=== PATIENT | male | born 1980 | race Caucasian/White ===

== ENCOUNTER 2017-03-16 20:45 | Outpatient (CLI) ==
[2014-04-06 14:57] VITALS: BMI 19.6
== END 2017-03-16 20:46 | disposition home or self-care (01) ==
LOC: AMBL 20:45
PROVIDERS: ATTEND Internal Medicine Geriatric Medicine
DX: R56.9 Unspecified convulsions (principal)

== ENCOUNTER 2017-09-29 14:23 | Outpatient (CLI) | payer OTHER ==
[2017-09-29 15:37] VITALS: BMI 19.1
== END 2017-09-29 14:24 | disposition left against medical advice (07) ==
LOC: AMBL 14:23
PROVIDERS: ATTEND Family Medicine
DX: R55 Syncope and collapse (principal); W19.XXXA Unspecified fall, initial encounter

== ENCOUNTER 2017-09-29 15:29 | Emergency (ER) ==
[2017-09-29 15:37] VITALS: BP 162/101; TEMP 98.6; BMI 19.1
--- NOTE | 2017-09-29 15:53 | ED.PDOC ---
Medical Screening Exam - General Information Time Seen by Physician*: 15:20 Mode of Arrival: Stretcher Information Source: Patient, EMT - History Chief Complaint: Seizure Stated Complaint: possible seizure, missed a couple of my seizure meds Symptoms Are: Resolved Severity: None - Review Of Systems Constitutional: None CV: Reports: None Respiratory: Reports: None GI: Reports: None : Reports: None Musculoskeletal: Reports: None Neuro: Reports: None - Examination Findings Visit Related to : No - Medical Decision Making Emergency Medical Condition: No Physical Exam - Physical Exam Appearance: Well-appearing Ill-appearing: None Pain Distress: None Eyes: CHAD, EOMI, Conjunctiva clear ENT: Ears normal, Nose normal, Oropharynx normal Respiratory: Airway patent, Breath sounds clear, Breath sounds equal, Respirations nonlabored Cardiovascular: RRR, Pulses normal, No rub, No murmur GI/: Soft, Nontender, No masses, Bowel sounds normal, No Organomegaly Musculoskeletal: Normal strength, ROM intact, No edema, No calf tenderness Skin: Warm, Dry, Normal color Neurological: Sensation intact, Motor intact, Reflexes intact, Cranial nerves intact, Alert, Oriented Psychiatric: Affect appropriate, Mood appropriate Interpretation - Gang Miner Rate: Normal Rhythm: Sinus Ectopy: None Re-Evaluation - Re-Evaluation Time of Re-Evaluation: 04:00 Status: Improved Vital Signs Stable: Yes Appearance: NAD Lungs: Clear Skin: Warm and Dry Neuro: Alert and Oriented X3 CV: RRR Critical Care Note - Critical Care Note Total Time (mins): 0 Course - Course Vital Signs: Temp Pulse Resp BP Pulse Ox 09/29/17 15:30 98.6 F 99 H 20 162/101 H 97 Departure - Departure Time of Disposition: 16:05 (AMA) Disposition: HOME SELF-CARE Discharge Problem: Seizure Condition: Good Pt referred to PMD for follow-up: Yes IPMP verified?: No Allergies/Adverse Reactions: Allergies aspirin Adverse Reaction (Verified 09/29/17 15:37) codeine Adverse Reaction (Verified 09/29/17 15:37) Home Medications: Ambulatory Orders Divalproex Sodium [Depakote] 500 mg PO QID 04/06/14 Ipratropium/Albuterol Sulfate [Combivent Respimat Inhal [place]] 4 gm IH DIRECTED 04/06/14 Phenytoin Cap [Dilantin] 200 mg PO BID 04/06/14 Disposition Discussed With: Patient (take seizure meds as directed)
== END 2017-09-29 16:00 | disposition left against medical advice (07) ==
LOC: ED 15:29
DX: R56.9 Unspecified convulsions (principal)
CPT/HCPCS: 82962; 99284

== ENCOUNTER 2017-09-29 16:45 | Outpatient (CLI) | payer OTHER ==
[2017-09-29 15:37] VITALS: BMI 19.1
== END 2017-09-29 16:46 | disposition short-term general hospital (02) ==
LOC: AMBL 16:45
PROVIDERS: ATTEND Family Medicine
DX: R56.9 Unspecified convulsions (principal); R41.82 Altered mental status, unspecified; S09.90XA Unspecified injury of head, initial encounter; W19.XXXA Unspecified fall, initial encounter

== ENCOUNTER 2018-10-05 17:06 | Emergency (ER) ==
[2018-10-05 17:14] VITALS: BP 82/56; TEMP 98.6
[2018-10-05] MEDS ORDERED: SODIUM CHLORIDE 1,000 ML IV STA (17:28)
[2018-10-05 17:30] VITALS: BMI 16.9
--- NOTE | 2018-10-05 17:35 | ED.PDOC ---
General ED Provider: Dr. SYDNI WILCOX Chief Complaint: Non-specific Complaint Stated Complaint: weakness, profound weight loss for weeks Time Seen by Physician: 17:12 (seen with norah garcia RN AT ALL TIMES ) Mode of Arrival: Wheelchair Information Source: Patient, Family Primary Care Provider: RASHAAD YOUNG Nursing and Triage Documentation Reviewed and Agree: Yes Does patient meet sepsis criteria?: Yes If yes, has appropriate treatment been initiated?: No (pt refused ) System Inflammatory Response Syndrome: Not Applicable Sepsis Protocol: For patient's 13 years and over: Temp is 96.8 and below OR 101 and greater Pulse >90 BPM Resp >20/minute Acutely Altered Mental Status Are patient's symptoms suggestive of a new infection, such as: -Pneumonia -Skin, Soft Tissue -Endocarditis -UTI -Bone, Joint Infection -Implantable Device -Acute Abdominal Infection -Wound Infection -Meningitis -Blood Stream Catheter Infection -Unknown Miscellaneous Complaint Exam - Complex/Multi-System Complaint/Exam Onset/Duration: 3 weeks , weakness , leg edema ,cough Symptoms Are: Still present Episodes Lasting: Weeks Initial Severity: Moderate Current Severity: Mild Location of Pain: abdomen, chest legs Pain Radiates to: no Character: dull Aggravating: poor diet Associated Signs and Symptoms: Reports: Cough, Edema (lower legs ). Denies: Decreased responsiveness, Confusion, Agitation, Dizziness, Weakness, Syncope, Headache, Short of air, Wheezing, Hemoptysis, Chest pain, Palpitations, Nausea, Vomiting, Diarrhea, Abdominal pain, Back pain, Dysuria, Hematemesis, Melena, Decreased oral intake, Fever, Diaphoresis, Immunocompromised, Anticoagulation Therapy, Recent medication changes, Indwelling medical staff specialist, Prior MRSA, Prior VRE, Recent trauma, Remote trauma Recent Echo/LV Function: No Respiratory Distress: None JVD Present: No Tachypnea Present: No Stridor Present: No Abdominal Findings: Present: Normal findings Glascow Coma Scale (see protocol): 15 Meningeal Signs Positive: No Focal Weakness: Present: None Focal Sensory Loss: Present: None Gait: Normal Gag Reflex Present: Yes Babinski Sign: Negative Right, Negative Left Skin Findings: Present: Normal findings Joint Swelling Present: No In-Dwelling Device Present: No Differential Diagnosis: Metabolic Abnormality Quality Indicators for Cardiac Chest Pain: EKG in 10min. Quality Indicators for AMI: EKG in 10min. Quality Indicator For Non-Traumatic Chest Pain/Syncope: EKG Performed Review of Systems - Review Of Systems Constitutional: Reports: Malaise, Weakness, Loss of appetite Ears, Nose, Mouth, Throat: Reports: No symptoms Respiratory: Reports: Cough Cardiac: Reports: No symptoms GI: Reports: Abdominal pain : Reports: No symptoms Musculoskeletal: Reports: No symptoms Skin: Reports: No symptoms Neurological: Reports: No symptoms Endocrine: Reports: No symptoms Hematologic/Lymphatic: Reports: No symptoms All Other Systems: Reviewed and Negative Past Medical History - Past Medical History Previously Healthy: No Endocrine: Reports: None Cardiovascular: Reports: None Respiratory: Reports: COPD Hematological: Reports: None Gastrointestinal: Reports: None Genitourinary: Reports: None Neuro/Psych: Reports: Seizure Musculoskeletal: Reports: None Cancer: Reports: None - Surgical History General Surgical History: Reports: None - Family History Family History: Reports: None - Social History Smoking Status: Current every day smoker, Heavy tobacco smoker Hx Substance Use: Yes ("Ismoke weed.") Alcohol Screening: None Physical Exam - Physical Exam Appearance: Ill-appearing Ill-appearing: Severe Pain Distress: Mild Eyes: CHAD, EOMI, Conjunctiva clear ENT: Dry mucosa Respiratory: Airway patent, Breath sounds clear, Breath sounds equal, Respirations nonlabored Cardiovascular: Tachycardia GI/: Soft, Nontender, No masses, Bowel sounds normal, No Organomegaly Musculoskeletal: Normal strength, ROM intact, No edema, No calf tenderness Skin: Warm, Dry, Normal color Neurological: Sensation intact, Motor intact, Reflexes intact, Cranial nerves intact, Alert, Oriented Psychiatric: Affect appropriate, Mood appropriate Procedures - Additional Procedures Additional Procedures: Other (femoral line attempted under absolute biotechnologist pt could not tolerate the procedure 3 attemps made , without sucess, right ej attempted similar technique vein was secured ) Re-Evaluation - Re-Evaluation Time of Re-Evaluation: 18:57 Status: Unchanged Vital Signs Stable: No (88/67) Pain Level: 0 Appearance: NAD Lungs: Clear (diminshed , dehydrated) Neuro: Alert and Oriented X3 CV: Other (tachycardic) Physician Notification - Case Discussed Physician Notified: [email or web address] Time of Notification: 19:00 Critical Care Note - Critical Care Note Total Time (mins): 90 Course - Course Hematology/Chemistry: 10/05/18 17:48 10/05/18 17:48 Orders, Labs, Meds: Lab Review 10/05/18 10/05/18 10/05/18 17:48 17:48 17:48 WBC 29.16 H RBC 3.82 L Hgb 10.5 L Hct 31.7 L MCV 83.0 MCH 27.5 MCHC 33.1 RDW Coeff of Shanta 12.8 Plt Count 262 Immature Gran % (Auto) 4.9 Neut % (Auto) 74.4 Lymph % (Auto) 2.7 L [place] % (Auto) 7.8 Eos % (Auto) 9.8 H Baso % (Auto) 0.4 Immature Gran # (Auto) 1.4 H Neut # (Auto) 21.7 H Lymph # (Auto) 0.8 [place] # (Auto) 2.3 H Eos # (Auto) 2.9 H Baso # (Auto) 0.1 PT 13.2 H INR 1.33 Sodium 119.7 L* Potassium 6.20 H* Chloride 83.1 L Carbon Dioxide 25.8 Anion Gap 17.00 BUN 37.4 H Creatinine 0.74 Estimated GFR (MDRD) 117.00 BUN/Creatinine Ratio 50.54 Glucose 93.6 Lactic Acid Calcium 8.04 L Total Bilirubin 0.33 AST 79.9 H ALT 22.2 Alkaline Phosphatase 277.5 H Total Protein 6.41 Albumin 3.00 L Globulin 3.41 Albumin/Globulin Ratio 0.87 Procalcitonin TSH 4.570 Free T4 Influ A Molecular Assay Influ B Molecular Assay 10/05/18 10/05/18 10/05/18 17:48 17:48 17:48 WBC RBC Hgb Hct MCV MCH MCHC RDW Coeff of Shanta Plt Count Immature Gran % (Auto) Neut % (Auto) Lymph % (Auto) [place] % (Auto) Eos % (Auto) Baso % (Auto) Immature Gran # (Auto) Neut # (Auto) Lymph # (Auto) [place] # (Auto) Eos # (Auto) Baso # (Auto) PT INR Sodium Potassium Chloride Carbon Dioxide Anion Gap BUN Creatinine Estimated GFR (MDRD) BUN/Creatinine Ratio Glucose Lactic Acid 1.23 Calcium Total Bilirubin AST ALT Alkaline Phosphatase Total Protein Albumin Globulin Albumin/Globulin Ratio Procalcitonin 2.15 TSH Free T4 Influ A Molecular Assay Negative by naat Influ B Molecular Assay Negative by naat 10/05/18 17:48 WBC RBC Hgb Hct MCV MCH MCHC RDW Coeff of Shanta Plt Count Immature Gran % (Auto) Neut % (Auto) Lymph % (Auto) [place] % (Auto) Eos % (Auto) Baso % (Auto) Immature Gran # (Auto) Neut # (Auto) Lymph # (Auto) [place] # (Auto) Eos # (Auto) Baso # (Auto) PT INR Sodium Potassium Chloride Carbon Dioxide Anion Gap BUN Creatinine Estimated GFR (MDRD) BUN/Creatinine Ratio Glucose Lactic Acid Calcium Total Bilirubin AST ALT Alkaline Phosphatase Total Protein Albumin Globulin Albumin/Globulin Ratio Procalcitonin TSH Free T4 1.02 Influ A Molecular Assay Influ B Molecular Assay Orders Category Date Time Status EKG-(ED ONLY) Stat CARDIO 10/05/18 17:26 Completed ED IV/MEDIPORT/POWERPORT .ONCE EMERGENCY 10/05/18 17:28 Active BLOOD CULTURE Stat LAB 10/05/18 17:48 Received CBC W/ AUTO DIFF Stat LAB 10/05/18 17:48 Completed COMPREHENSIVE METABOLIC PANEL Stat LAB 10/05/18 17:48 Completed FLU A/B MOLECULAR Stat LAB 10/05/18 17:48 Completed FREE T4 (FREE THYROXINE) Stat LAB 10/05/18 17:48 Completed LACTIC ACID Stat LAB 10/05/18 17:48 Completed PROCALCITONIN Stat LAB 10/05/18 17:48 Completed PT WITH INR Stat LAB 10/05/18 17:48 Completed THYROID STIMULATING HORMONE Stat LAB 10/05/18 17:48 Completed URINALYSIS C & S IF INDICATED Stat LAB 10/05/18 17:27 Uncollected 0.9 % Sodium Chloride [Saline Flush] MEDS 10/05/18 17:28 Ordered 1 syr IVF PRN PRN Lidocaine HCl/Pf [Lidocaine HCl 1% Sdv] MEDS 10/05/18 18:38 Discontinued 5 ml .ROUTE .STK-MED ONE Piperacillin Sodium/Tazobactam [Zosyn 3.375 gm] 3.375 MEDS 10/05/18 18:47 Ordered gm 0.9 % Sodium Chloride [Sodium Chloride] 50 ml IV ONCE Sodium Chloride 0.9% [Sodium Chloride] 1,000 ml MEDS 10/05/18 17:28 Active IV 125 mls/hr CT ABDOMEN/PELVIS WO CONTRAST Stat RADS 10/05/18 17:[address] CHEST W/O CONTRAST Stat RADS 10/05/18 17:26 Completed Medications Generic Name Dose Route Start Last Admin Trade Name Freq PRN Reason Stop Dose Admin Sodium Chloride 1,000 mls @ 125 mls/hr 10/05/18 17:28 Sodium Chloride IV 10/06/18 01:27 .Q8H STA Piperacillin Sod/Tazobactam 50 mls @ 50 mls/hr 10/05/18 18:47 Sod 3.375 gm/ Sodium Chloride IV 10/05/18 19:46 ONCE STA Sodium Chloride 1 syr 10/05/18 17:28 Saline Flush IVF PRN PRN To flush IV Vital Signs: Temp Pulse Resp BP Pulse Ox 10/05/18 17:10 98.6 F 118 H 20 82/56 L 98 Departure - Departure Time of Disposition: 19:04 (ALL LABS AND IMAGINGS DISCUSSED PT DOES NOT WISH TO BE TRATED AT [facility]. HE WANTED ME TO JUST GIVE HIM AN ANTIBIOTIC Rx AND D/C HIM HOME. WITH NOVEMBER PRESENT WE ASKED THE THE PT TO CHANGE HIS MIND AND WE WILL TRANSFER HIM TO ANOTHER HOSPITAL OF HIS CHOSING BUT, THE PT REFUSED. I TOLD IN PLAIN TERMS THAT HE WOULD IF GOES HOME HE STILL DECLINED TO BE TRANSFERED, HE GCS WAS 15 ) Disposition: AMA Discharge Problem: Lung mass, Hyperkalemia, Dehydration, Hyponatremia Anemia Qualifiers: Anemia type: unspecified type Qualified Code(s): D64.9 - Anemia, unspecified Instructions: Hyperkalemia (ED), Hyponatremia (ED) Condition: Good Pt referred to PMD for follow-up: Yes IPMP verified?: No Additional Instructions: Please call your Family Physician as soon as possible to schedule a follow-up appointment.you have most likey cancer of lung which has attacked other places possibly your liver. your potassium is too high also your sodium is way too low. this is not a giordano choice your runing risk of sudden . please return or go to another hospital if you change your mind Allergies/Adverse Reactions: Allergies aspirin Adverse Reaction (Verified 10/05/18 17:16) codeine Adverse Reaction (Verified 10/05/18 17:16) Home Medications: Ambulatory Orders Divalproex Sodium [Depakote] 500 mg PO QID 04/06/14 Ipratropium/Albuterol Sulfate [Combivent Respimat Inhal [place]] 4 gm IH DIRECTED 04/06/14 Phenytoin Cap [Dilantin] 200 mg PO BID 04/06/14 Disposition Discussed With: Patient, Family
--- NOTE | 2018-10-05 18:30 | CT ---
Exam: CT of the chest without contrast History: Cough and chronic obstructive pulmonary disease Technique: [address] of the chest without contrast FINDINGS: Severe emphysematous change is present. Consolidative pneumonia in the left upper lobe an d left lower lobe. Patchy ground-glass pneumonia on the right. Multiple bilateral pulmonary nodules of varying size. The largest measures 6.5 mm in the right lower lobe. Left hilar mass extending in to the mediastinum. The mass measures roughly 8.4 x 6.2 cm. Extensive mediastinal lymphadenopathy. Atherosclerotic calcification of the aorta without aneurysm. Pericardial effusion measures 1.5 cm m aximum thickness. No acute findings of the skeleton or chest wall soft tissues. See abdominal CT fo r upper abdomen. Impression: 1. Left hilar and mediastinal mass is most likely malignant. Bilateral multiple pulmonary nodules a re likely metastatic. 2. Bilateral multilobar infiltrative and consolidative pneumonia. Probable postobstructive pneumoni a on the left. 3. Emphysema 4. Moderate sized pericardial effusion
[2018-10-05] MEDS ORDERED: LIDOCAINE HCL 1% SDV ONE (18:38)
[2018-10-05] MEDS ORDERED: ZOSYN 3.375 GM 3.375 GM in SODIUM CHLORIDE 50 ML IV STA (18:47)
--- NOTE | 2018-10-05 18:48 | CT ---
Exam: CT abdomen pelvis without intravenous contrast. Comparison: CT pelvis performed 10/18/2010 CT chest performed on the same day. Reason for exam: Pain and failure to thrive. FINDINGS: Consolidation in the partially imaged left lower lobe, right middle lobe and right lower l obe with a 1.4 cm pleural-based nodule in the left lung base on axial image number 23. Image interpretation is limited by the lack of intravenous contrast. There is a moderate to large pericardial effusion. There is thickening of the distal esophageal wall . The liver is markedly enlarged. The spleen is prominent in size measuring 14 cm. Multiple hypodensi ties are seen throughout the left renal parenchyma on this noncontrasted study. There is a moderate amount of intra-abdominal free fluid and inflammation which limits interpretation. The gallbladder i s markedly enlarged without obvious wall thickening. There is a paucity of intra-abdominal fat which limits interpretation. Multiple cortical hyperdensities are seen in the left kidney. There is a mild to moderate amount of periportal edema is seen within the hepatic parenchyma. No nephrolithiasis is seen. No focal small bowel dilatation or transition point. There is circumferential bladder wall thickening. No suspicious appearing osteoblastic or osteolytic lesion. Impression: 1. Partially imaged multi-focal pneumonia/pneumonitis. 2. Marked hepatomegaly and splenomegaly with periportal edema. 3. Moderate to large amount of intra-abdominal free fluid and mesenteric inflammation of unknown evie ology. 4. Left renal cortical hypodensities. Findings can be seen with cortical hemorrhage, proteinaceous cyst, and other cortical etiologies. Consider further evaluation. 5. Circumferential bladder wall thickening can be seen with cystitis, outlet obstruction, and edema. Recommend clinical correlation and consider direct visualization. 6. Moderately sized pericardial effusion. 7. Thickening of the distal esophageal wall.
== END 2018-10-05 19:10 | disposition left against medical advice (07) ==
LOC: ED 17:06
DX: E87.5 Hyperkalemia (principal); D64.9 Anemia, unspecified; E87.1 Hypo-osmolality and hyponatremia; E86.0 Dehydration; R91.8 Other nonspecific abnormal finding of lung field; R60.0 Localized edema; R05 Cough; R63.4 Abnormal weight loss; R53.1 Weakness; R53.83 Other fatigue; R10.9 Unspecified abdominal pain; J44.9 Chronic obstructive pulmonary disease, unspecified; F17.210 Nicotine dependence, cigarettes, uncomplicated; R40.2412 Glasgow coma scale score 13-15, at arrival to emergency department
CPT/HCPCS: 36415; 80053; 83605; 84145; 84439; 84443; 85025; 85610; 87040; 87502; 93005; 93010; 99284

== ENCOUNTER 2018-10-13 14:34 | Outpatient (CLI) | payer OTHER ==
[2018-10-13 14:50] VITALS: BMI 17.4
== END 2018-10-13 14:38 | disposition critical access hospital (66) ==
LOC: AMBL 14:34
PROVIDERS: ATTEND Emergency Medicine
DX: I46.9 Cardiac arrest, cause unspecified (principal); R40.2431 Glasgow coma scale score 3-8, in the field [EMT or ambulance]

== ENCOUNTER 2018-10-13 14:39 | Emergency (ER) ==
[2018-10-13 14:50] VITALS: BP 0/0; TEMP 0; BMI 17.4
[2018-10-13] MEDS ORDERED: EPINEPHRINE 1 MG/10 ML SYRINGE IV STA ×2 (14:58→15:00)
--- NOTE | 2018-10-13 16:13 | ED.PDOC ---
General ED Provider: Dr. RAYNA VALENTIN Chief Complaint: Cardiac Arrest Stated Complaint: cardiac?or respiratory arrest/-pt found on the scene by EMS down appreox 15 min from actual arrest without a bystender CPR. Time Seen by Physician: 14:40 Mode of Arrival: Ambulance Information Source: EMT Primary Care Provider: RASHAAD YOUNG Nursing and Triage Documentation Reviewed and Agree: Yes Does patient meet sepsis criteria?: No System Inflammatory Response Syndrome: Not Applicable Sepsis Protocol: For patient's 13 years and over: Temp is 96.8 and below OR 101 and greater Pulse >90 BPM Resp >20/minute Acutely Altered Mental Status Are patient's symptoms suggestive of a new infection, such as: -Pneumonia -Skin, Soft Tissue -Endocarditis -UTI -Bone, Joint Infection -Implantable Device -Acute Abdominal Infection -Wound Infection -Meningitis -Blood Stream Catheter Infection -Unknown Cardiac Resuscitation - Cardiac Resuscitation/Physical Exam Witnessed Arrest: Yes (no bhystander CPR) Down-time Before BLS Initiated: 15 min Down-time Before ALS Initiated: 30 min Airway Prehospital Findings: Reports: Gag reflex absent Breathing Prehospital Findings: Reports: Apnea Circulation/Rhythm Prehospital Findings: Reports: Asystole Disability/Neurological Prehospital Findings: Reports: Unresponsive Airway Prehospital Intervention: Reports: Oral airway Breathing Prehospital Intervention: Reports: Oxygen, Bag-valve mask Circulation/Rhythm Prehospital Intervention: Reports: Chest compressions, Epinephrine Circulation/Rhythm Prehospital Response: Present: Asystole Total Down Time DIRECT CARE WORKER: 30-45 min Airway ED Findings: Gag reflex absent Breathing ED Findings: Present: Apnea Circulation/Rhythm ED Findings: Present: Asystole Disability/Neurological ED Findings: Present: Unresponsive Breathing ED Intervention: Intubated by ED physician Circulation/Rhythm ED Intervention: IV/IO placed, Epinephrine Breathing ED Response: Equal breath sounds, Confirmed by auscultation, Confirmed by CO2 detector Circulation/Rhythm ED Response: Present: Asystole Right Pupil: Dilated Left Pupil: Dilated EMS/Code Sheet Reviewed: Yes Resuscitation Successful: No Terminated At: 14.42 Preliminary Cause of : respiratory arrest Differential Diagnoses: Asystole, Card. Rhythm Disturbance, Drug Overdose, Respiratory Failure Past Medical History - Past Medical History Previously Healthy: No Endocrine: Reports: None Cardiovascular: Reports: None Respiratory: Reports: COPD Hematological: Reports: None Gastrointestinal: Reports: None Genitourinary: Reports: None Neuro/Psych: Reports: Seizure Musculoskeletal: Reports: None Cancer: Reports: None - Surgical History General Surgical History: Reports: None - Family History Family History: Reports: None - Social History Smoking Status: Current every day smoker, Heavy tobacco smoker Hx Substance Use: Yes ("Ismoke weed.") Alcohol Screening: None Critical Care Note - Critical Care Note Total Time (mins): 20 Course - Course Orders, Labs, Meds: Orders Category Date Time Status Epinephrine [Epinephrine 1 mg/10 ml Syringe] MEDS 10/13/18 14:58 Discontinued 1 mg IV ONCE STA Epinephrine [Epinephrine 1 mg/10 ml Syringe] MEDS 10/13/18 15:00 Discontinued 1 mg IV ONCE STA Medications Discontinued Medications Generic Name Dose Route Start Last Admin Trade Name Freq PRN Reason Stop Dose Admin Epinephrine HCl 1 mg 10/13/18 14:58 10/13/18 14:39 Epinephrine 1 Mg/10 Ml Syringe IV 10/13/18 14:59 1 mg ONCE STA Administration Epinephrine HCl 1 mg 10/13/18 15:00 10/13/18 14:42 Epinephrine 1 Mg/10 Ml Syringe IV 10/13/18 15:01 1 mg ONCE STA Administration Vital Signs: Temp Pulse Resp BP Pulse Ox 10/13/18 14:40 0 F L 0 L 0 L 0/0 L 0 L Departure - Departure Time of Disposition: 15:00 Disposition: Discharge Problem: Cardiac arrest Condition: Pt referred to PMD for follow-up: No IPMP verified?: No Allergies/Adverse Reactions: Allergies aspirin Adverse Reaction (Verified 10/13/18 14:55) codeine Adverse Reaction (Verified 10/13/18 14:55) Home Medications: Ambulatory Orders Divalproex Sodium [Depakote] 500 mg PO QID 04/06/14 Ipratropium/Albuterol Sulfate [Combivent Respimat Inhal [place]] 4 gm IH DIRECTED 04/06/14 Phenytoin Cap [Dilantin] 200 mg PO BID 04/06/14
== END 2018-10-13 17:15 | disposition expired ==
LOC: ED 14:39
DX: I46.9 Cardiac arrest, cause unspecified (principal); F17.210 Nicotine dependence, cigarettes, uncomplicated; J44.9 Chronic obstructive pulmonary disease, unspecified; R40.2431 Glasgow coma scale score 3-8, in the field [EMT or ambulance]
CPT/HCPCS: 96374; 99285